=== PATIENT | female | born 1960 | race Caucasian/White ===

== ENCOUNTER → 2017-01-28 | Day surgery (SDC) | payer OTHER ==
[~2017-01-28] VITALS: Ht 165.1 cm; Wt 83.9 kg
[~2017-01-28] MED LIST: ASPI-973 PO; BUPR150T12 PO; CARV3.122 PO; DIVA500T14 PO; ENAL2.5T PO; LEVO125T6 PO; NITR100 PO; PRAV80TA2 PO; Sodium Chloride LOK Flush 10 mL Syringe IV PRN; fentaNYL-PF 50 mCg/mL 2 mL Inj IVPUSH PRN
[2017-01-28 08:15] VITALS: BP 127/62; PULSE 73; RESP 14; O2SAT 99
[2017-01-28] MEDS: 0.9% Sodium Chloride 1,000 ML IV PRN ×2 (08:45→08:56)
[2017-01-28 09:05] VITALS: BP 104/91; PULSE 69; O2SAT 97
[2017-01-28 09:15] VITALS: BP 93/45; PULSE 68; O2SAT 95
--- NOTE | 2017-01-28 09:32 | ENDO ---
[address] [address] ENDOSCOPY PROCEDURE PATIENT: KIRSTEN WONG : 1960 MR#: [id number] ADMIT: 01/28/2017 JOB ID: [id number] DATE: 01/28/2017 PROCEDURE: Colonoscopy with hot snare polypectomies. INDICATIONS: A 56-year-old female with a family history of colon polyps reporting for colon cancer screening. EQUIPMENT: PCF-H180AL SEDATION: 1. Versed 5 mg. 2. Fentanyl 125 mcg. COMPLICATIONS: None identified. BOWEL PREPARATION: Fair, adequate exam. PROCEDURE INFO: After the risks and benefits were explained, written and verbal informed consent was obtained. The patient was brought into the endoscopy suite and placed into the left lateral decubitus position. Sedation was achieved using the above-stated medications with the addition of oxygen via nasal cannula. A digital rectal examination was accomplished. No significant pathology appreciated. The scope was introduced into the rectum and advanced to the cecum as identified by the appendiceal orifice and ileocecal valve. The scope was slowly withdrawn to carefully examine the mucosa for any defects or lesions. Retroflexed views were accomplished in the rectum. The colon was decompressed. The scope removed the patient who tolerated the procedure well. FINDINGS: Some moderate diverticulosis was seen in the left colon. Retroflexed views from within the rectum disclosed moderate internal hemorrhoids. In the distal descending colon, there was a large pedunculated polyp, perhaps about 15 mm in greatest dimension removed with hot snare. Otherwise, in the more proximal colon there were two other polyps removed, also with hot snare. These were and labeled "colon polyps." The largest of the two was perhaps 7-8 mm in size. ENDOSCOPIC DIAGNOSES: 1. Colon polyps. 2. Diverticulosis. 3. Hemorrhoids. RECOMMENDATIONS: 1. Await histopathology. 2. Repeat colonoscopy in three years.
--- NOTE | 2017-01-29 17:26 | PATH ---
SURGICAL PATHOLOGY Attending Physician:Antony Heath CASE STATUS: Signed Out PATIENT NAME: KIRSTEN WONG PID: [id number] : 1960 DATE COLLECTED:01/28/2017 16:31 SPECIMEN: 1: Colon, Polyp 2: Colon, Polyp CLINICAL HISTORY: 1). COLON POLYPS X2 2). DESCENDING COLON POLYP FINAL DIAGNOSIS: 1.COLON POLYPS, BIOPSIES: TUBULAR ADENOMATA. 2.DESCENDING COLON POLYP, POLYPECTOMY: TUBULOVILLOUS ADENOMA. ICD10 D12.6 GROSS DESCRIPTION: The specimen is received in two formalin filled containers labeled with the patient's name. 1). The specimen is labeled "colon polyps" and consists of multiple portions of tissue which aggregate to 0.3 x 0.3 x 0.3 CM. The specimen is entirely submitted in cassettes 1A. 2). The specimen is labeled "descending colon polyp" and consists of a 0.6 x 0.5 x 1.0 CM portion of tissue which is bisected and totally submitted in cassette 2A. 01/28/2017DC MICRO DESCRIPTION: See diagnosis. ICD-9 CODES: CPT CODES: 1: 46149 2: 36479 Electronically Signed Out Kali Ngo MD, Ph.D. [facility] [address] [facility] [address], [place] [address] Technical component performed at [facility], [facility] [address], [address]
== END | disposition home or self-care (01) ==
LOC: END 00:27
PROVIDERS: ATTEND Internal Medicine Gastroenterology
DX: Z12.11 Encounter for screening for malignant neoplasm of colon (principal); D12.4 Benign neoplasm of descending colon; K57.30 Diverticulosis of large intestine without perforation or abscess without bleeding; K64.8 Other hemorrhoids; Z83.71 Family history of colonic polyps; I25.10 Atherosclerotic heart disease of native coronary artery without angina pectoris; I87.2 Venous insufficiency (chronic) (peripheral); Z79.82 Long term (current) use of aspirin
CPT/HCPCS: 45385; 99153; G0500; J2250; J3010; J7030